=== PATIENT | male | born 1965 | race Caucasian/White ===

== ENCOUNTER 2024-07-31 15:41 | Outpatient (AMB) | payer OTHER, SELFPAY ==
--- NOTE | 2024-07-31 15:44 | MHC.PC.OV ---
Vital Signs 07/31/24 15:53 Height 5 ft 6.75 in Weight 207 lb BMI 32.7 BP 132/70 Blood Pressure Location Rt brachial Pulse 85 Pulse Source Pulse Oximeter Temp 97.2 F Pulse Oximetry (%) 97 Intake Visit Reasons: physical Intake Note: left shoulder pain Allergies No Known Allergies Allergy (Verified 08/01/24 06:15) Medication List - Last Reconciled 08/01/24 by Sabino Butler MD atorvastatin 20 mg PO DAILY dulaglutide (Trulicity) 1.5 mg (0.5 mL) subcut QWEEK 90 days meloxicam 15 mg PO DAILY metformin 1,000 mg PO BIDWMEAL HPI physical HPI Details 59-year-old male presents to the office for an annual physical. Patient has history of diabetes and is taking medications. He is compliant with medications and reporting no side effects. 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 Patient has been complaining of left shoulder pain for the past few years. No history of fall or injury prior to the onset of symptoms. Pain has worsened over the months. He now has restriction of movement when he is unable to lift the arm over the shoulder level. Consistently wearing a sling at work. [facility] Medical History (Updated 08/01/24 @ 06:21 by Sabino Butler MD) Arthritis of left shoulder DM (diabetes mellitus) type II uncontrolled with eye manifestation Physical exam (Primary Care) Vital Signs: Last Vital Signs Temp 97.2 F 07/31/24 15:53 Pulse 85 07/31/24 15:53 BP 132/70 07/31/24 15:53 Pulse Ox 97 07/31/24 15:53 BMI result Body Mass Index 32.7 Const General: cooperative and healthy appearing Nutritional Appearance: well nourished Orientation/consciousness: patient oriented x3 Limitations: no limitations HENMT Head: Yes normal to inspection Eyes General: appearance normal, both eyes and all related structures Neck Neck: Yes normal visual inspection Chest Chest palpation & inspection: normal palpation of entire chest wall Resp Effort & Inspection: normal respiratory effort Neuro General: patient oriented x3 Coding Level of Care Code New Pt Level 3 (60359) New Pt Prev Care 40-64y(91457) Diagnoses Left shoulder strain S46.912A Arthritis of left shoulder M19.012 DM (diabetes mellitus) type II uncontrolled with eye manifestation Assessment & Plan Assessment & Plan (1) Left shoulder strain: Code(s): S46.912A - Strain of unspecified muscle, fascia and tendon at shoulder and upper arm level, left arm, initial encounter Plan: X-ray of the shoulder ordered. Physical therapy to improve range of motion ordered. An orthopedic consult for possible steroid injection suggested. Meloxicam added to the regimen. (2) Arthritis of left shoulder: Code(s): M19.012 - Primary osteoarthritis, left shoulder Category: Medical Plan: As above (3) DM (diabetes mellitus) type II uncontrolled with eye manifestation: Category: Medical Plan: Medications for 90 days ordered. Continue medications at same dosage. Plan As above Orders: Orders XR shoulder LT min 2V 07/31/24 S43.402A - Unspecified sprain of left shoulder joint, initial encounter PT Evaluation and Treatment 07/31/24 S46.912A - Strain of unspecified muscle, fascia and tendon at shoulder and upper arm level, left arm, initial encounter Medications: New atorvastatin 20 mg PO DAILY 90 tabs 1RF meloxicam 15 mg PO DAILY 14 tabs 0RF metformin 1,000 mg PO BIDWMEAL 180 tabs 1RF Changed From dulaglutide (Trulicity) 1.5 mg (0.5 mL) subcut QWEEK 2 mL 3RF To dulaglutide (Trulicity) 1.5 mg (0.5 mL) subcut QWEEK 6.5 mL 3RF 90 days
[2024-07-31 15:53] VITALS: BP 132/70; PULSE 85; TEMP 36.2; O2SAT 97; BMI 32.7
--- OUTSIDE RECORDS SUMMARY | 2024-07-31 16:16 | XMS_ITS ---
Author Organization Colt Sheikh DO [facility] Address [address] [place] [id number] Care Team Providers Care Telephony Engineer Name Role Phone Colt Sheikh Primary Care Provider [phone] REASON FOR VISIT Refills MEDICATIONS Medication SIG (Take, Route, Fr equency, Duration) Notes Start Date End Date Status Trulicity 1.5 MG/0.5ML 1.5mg/0.5ml Subcu taneous Once a week for 90 days Active Encounters Encounter Location Date Provider Diagnosis Colt Sheikh DO, [address] [id number] 06/15/2024 Colt Sheikh Type 2 diabetes mellitus without complication, without long-term current use of insulin E11.9 ASSESSMENTS Encounter Date Diagnosis Assessment Notes Treatment Notes Treatment Clinical Notes 06/15/2024 Type 2 diabetes mellitus without complication, without long-term current use of insulin (ICD-10 - E11.9) PLAN OF TREATMENT Medication Medication Name Sig Start Date Stop Date Notes Trulicity 1.5 MG/0.5ML 1.5mg/0.5ml Subcu taneous Once a week for 90 days
--- OUTSIDE RECORDS SUMMARY | 2024-07-31 16:16 | XMS_ITS ---
Author Organization Colt Sheikh DO, [facility] Address [address] [place], [place] [phone] Care Team Providers Care Wet Pour Supervisor Name Role Phone Colt Sheikh Primary Care Provider REASON FOR VISIT physical Encounters Encounter Location Date Provider Diagnosis Colt Sheikh DO, FACP [address] [place] [phone] 07/31/2024 Colt Sheikh PLAN OF TREATMENT No Information
--- OUTSIDE RECORDS SUMMARY | 2024-07-31 16:16 | XMS_ITS | Patient Health Record ---
Author Organization Colt Sheikh DO, FACP Address [address] [place], [place] [phone] Care Team Providers Care Customer Complaint Clerk Name Role Phone Colt Sheikh Primary Care Provider [phone] ALLERGIES No Known Allergies REASON FOR REFERRAL No Information MEDICATIONS Medication SIG (Take, Route, Frequency, Duration) Notes Start Date End Date Status Atorvastatin Calcium 20 MG 1 tablet Orally Once a day Active metFORMIN HCl 1000 MG 1 tablet with a me al Orally Twice a day Active Trulicity 1.5 MG/0.5ML 1.5mg/0.5ml Subcu taneous Once a week for 90 days Active IMMUNIZATIONS Vaccine Route Administration Date Status Comme nts Influenza Quad Unknown 04/21/2022 Administered COVID-19 Manolo (J/J) Unknown 02/06/2021 Administered TDaP Unknown 04/21/2022 Administered SOCIAL HISTORY Tobacco Use: Social History Observation Description Date Details (start date - stop date) Never Smoker NA - NA Sex Assigned At : Social History Observation Description Sex Assigned At Unknown Tobacco Use/Smoking Question Answer Notes Patient is a nonsmoker Additional Findings: Tobacco Non-User Cu rrent non-smoker, currently using no form of tobacco Alcohol Screen Question Answer Notes Did you have a drink contain ing alcohol in the past year? Yes How often did you have a dri nk containing alcohol in the past year? Monthly or less (1 point) How many drinks did you have on a typical day when you were drinking in the past year? 1 or 2 drinks (0 point) How often did you have 6 or more drinks on one occasion in the past year? Never (0 point) Points 1 Interpretation Negative PROBLEMS Problem Type ICD Code Onset Dates Problem Status W/U Status Risk SNOMED Code Notes Problem Type 2 diabetes mellitus without complication, without long-term current use of insulin (E11.9) Active confirmed [id number] VITAL SIGNS Height 68 in 04/27/2024 Weight 201 lbs 04/27/2024 BMI 30.56 kg/m2 04/27/2024 Encounters Encounter Location Date Provider Diagnosis Colt Sheikh DO, [facility] [address] [place], [place] [phone] 07/31/2024 Colt Sheikh DO, [facility] [address] [place], [place] [phone] 06/15/2024 Colt Sheikh Type 2 diabetes mellitus without complication, without long-term current use of insulin E11.9 Colt Sheikh DO, [facility] [address] [place], [place] [phone] 04/27/2024 Colt Sheikh Type 2 diabetes mellitus without complication, without long-term current use of insulin E11.9 and Prostate cancer screening Z12.5 ASSESSMENTS Encounter Date Diagnosis Assessment Notes Treatment Notes Treatment Clinical Notes 06/15/2024 Type 2 diabetes mellitus without complication, without long-term current use of insulin (ICD-10 - E11.9) 04/27/2024 Type 2 diabetes mellitus without complication, without long-term current use of insulin (ICD-10 - E11.9) 04/27/2024 Prostate cancer screening (ICD-10 - Z12.5) PLAN OF TREATMENT Pending Test Test Name Order Date CBC w DIFF 04/27/2024 TSH (THYROID STIMULATING HORMONE) 2023 VITAMIN D 25-OH TOTAL 04/27/2024 Urinalysis and Microscopic 04/27/2024 Liver Panel 04/27/2024 Basic Metabolic Panel Fasting 04/27/2024 Lipid Panel 04/27/2024 PSA,Total (Free>4and<10) 04/27/2024 Microalbumin, Random 04/27/2024 Hemoglobin A1c 04/27/2024 Insurance Providers Payer Name Payer Address Payer Phone Subscriber Number Group Number Insured Name Patient Relationship to Insured Coverage Start Date Coverage End Date [employer] [address] [place] [id number] Isaak Mcknight Self - patient is the insured MEDICAL (GENERAL) HISTORY Medical History History ICD Code type II diabetes mellitus hypertension, diet controlled seasonal allergies Surgical History Surgery Date(Month/Year) cataract-lens implants OS
--- OUTSIDE RECORDS SUMMARY | 2024-07-31 16:16 | XMS_ITS ---
Author Organization Colt Sheikh DO, FACP Address [address] [place], [place] [phone] Care Team Providers Care Manufacturer'S Representative Name Role Phone Colt Sheikh Primary Care Provider ALLERGIES No Known Allergies REASON FOR VISIT new patient MEDICATIONS Medication SIG (Take, Route, Frequency, Duration) Notes Start Date End Date Status Atorvastatin Calcium 20 MG 1 tablet Orally Once a day Active Trulicity 1.5 MG/0.5ML 1.5mg/0.5ml Subcu taneous Once a week for 30 days Active metFORMIN HCl 1000 MG 1 tablet with a me al Orally Twice a day Active SOCIAL HISTORY Tobacco Use: Social History Observation [...] current use of insulin (E11.9) Active confirmed [id number] VITAL SIGNS BMI 30.56 kg/m2 04/27/2024 Height 68 in 04/27/2024 Weight 201 lbs 04/27/2024 Encounters Encounter Location Date Provider Diagnosis Colt Sheikh DO, FACP [address] [place] [phone] 04/27/2024 Colt Sheikh Type 2 diabetes mellitus without complication, without long-term current use of insulin E11.9 and Prostate cancer screening Z12.5 ASSESSMENTS Encounter Date Diagnosis Assessment Notes Treatment Notes Treatment Clinical Notes 04/27/2024 Type 2 diabetes mellitus without complication, without long-term current use of insulin (ICD-10 - E11.9) 04/27/2024 Prostate cancer screening (ICD-10 - Z12.5) PLAN OF TREATMENT Medication Medication Name Sig Start Date Stop Date Notes Atorvastatin Calcium 20 MG 1 tablet Orally Once a day Trulicity 1.5 MG/0.5ML 1.5mg/0.5ml Subcu taneous Once a week for 30 days metFORMIN HCl 1000 MG 1 tablet with a me al Orally Twice a day Pending Test Test Name Order Date CBC w DIFF 04/27/2024 TSH (THYROID STIMULATING HORMONE) 2023 VITAMIN D 25-OH TOTAL 04/27/2024 Urinalysis and Microscopic 04/27/2024 Liver Panel 04/27/2024 Basic Metabolic Panel Fasting 04/27/2024 Lipid Panel 04/27/2024 PSA,Total (Free>4and<10) 04/27/2024 Microalbumin, Random 04/27/2024 Hemoglobin A1c 04/27/2024 Next Appt Details Follow Up: 3 Months, Reason: H&P Progress Notes * Examination Category Sub-Category Detail Notes General Examination PSYCH: alert, orien yolanda, cognitive function intact History and Physical Notes * HPI (History of Present Illness) Category Sub-Category Detail Notes New symptom(s) Telehealth Location of provider:: Pro cruz's home address Location of patient:: Address listed in demographics for today's visit Patient identification confirmed using:: Name, Telehealth method:: Telephone only. Nieves ent not visible to care provider. Consent:: Patient verbally c onsented to treatment, Patient verbally consented to billing insurance company, Patient informed of any privacy concerns related to method of visit Total time spent with patient (mins): 33 Disclaimer: This Telehealth visit is being conducted per CDC recommendations due to the COVID-19 outbreak.
== END 2024-07-31 16:07 | disposition home or self-care (01) ==
LOC: HO.HMCSH 15:41
PROVIDERS: PCP Internal Medicine; Visit Provider Internal Medicine
DX: Z00.00 Encounter for general adult medical examination without abnormal findings (principal); S46.912A Strain of unspecified muscle, fascia and tendon at shoulder and upper arm level, left arm, initial encounter; M19.012 Primary osteoarthritis, left shoulder

== ENCOUNTER → 2024-07-31 15:41 | Outpatient (BNVA) | payer OTHER, SELFPAY | PROVIDERS: PCP Internal Medicine; Visit Provider Internal Medicine ==

== ENCOUNTER 2024-08-27 13:26 | Outpatient (REF) | payer OTHER, SELFPAY ==
--- NOTE | ~2024-08-27 | XR_ITS ---
EXAMINATION: XR SHOULDER, LEFT CLINICAL INFORMATION: S43.402A - Unspecified sprain of left shoulder joint, initial encounter COMPARISON: None available. TECHNIQUE: AP external rotation, Grashey, scapular Y, and axillary views of the left shoulder. FINDINGS: Normal bone mineralization. No fracture, dislocation, or suspicious bone lesion. Normal alignment. The glenohumeral joint is normal. The AC joint demonstrates mild superior surface spurring. No undersurface spurs. There is a type II acromion. No undersurface spurring. The subacromial space is preserved. Remainder of the soft tissue and bony structures appear normal. XR/XR shoulder LT min 2V IMPRESSION: 1. Mild degenerative arthritis of the AC joint. Otherwise normal exam. Electronically signed by: Piyush Monsalve MD 08/28/2024 09:44 AM EDT
== END 2024-08-27 13:27 | disposition home or self-care (01) ==
LOC: HO.XRAY 13:26
PROVIDERS: PCP Internal Medicine; Visit Provider Internal Medicine
DX: E11.9 Type 2 diabetes mellitus without complications (principal); G47.00 Insomnia, unspecified; I10 Essential (primary) hypertension; E78.00 Pure hypercholesterolemia, unspecified; M75.02 Adhesive capsulitis of left shoulder
CPT/HCPCS: 73030

== ENCOUNTER → 2024-08-27 13:31 | Outpatient (BNV) | payer OTHER, SELFPAY | PROVIDERS: PCP Internal Medicine; Visit Provider Radiology Diagnostic Radiology | DX: S43.402A Unspecified sprain of left shoulder joint, initial encounter (principal) | CPT/HCPCS: 73030 ==

== ENCOUNTER 2024-08-27 15:34 | Outpatient (AMB) | payer OTHER, SELFPAY ==
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
[2024-08-27 15:45] VITALS: BP 132/72; PULSE 91; TEMP 36.7; O2SAT 98; BMI 33.0
== END 2024-08-27 16:30 | disposition home or self-care (01) ==
LOC: HO.HMCSH 15:34
PROVIDERS: PCP Internal Medicine; Visit Provider Physician Assistant Medical
DX: E11.9 Type 2 diabetes mellitus without complications (principal); G47.00 Insomnia, unspecified; I10 Essential (primary) hypertension; E78.00 Pure hypercholesterolemia, unspecified; M75.02 Adhesive capsulitis of left shoulder

== ENCOUNTER 2024-10-10 13:42 | Outpatient (AMB) | payer OTHER, SELFPAY ==
--- NOTE | 2024-10-10 13:48 | MHC.OFFVIS ---
Vital Signs 10/10/24 14:01 Height 5 ft 6.75 in Weight 209 lb BMI 33.0 Intake Visit Reasons: Left shoulder pain and weakness Intake Note: Isaak is a 59 year old 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 male who presents with complaints of progressively worsening left shoulder pain and weakness. The patient describes his pain as sharp in nature. The patient's symptoms have gotten worse over the last 1-2 years in spite of continued non operative treatments. The patient has completed 6 weeks of formal physical therapy. The therapy aggravated his pain. He has tried Tylenol, Aleve and Advil which gave him minimal relief. The patient reports difficulty lifting his left hand above shoulder height. Allergies No Known Allergies Allergy (Verified 10/10/24 13:51) Medication List - Last Reconciled 10/10/24 by David Chang MD atorvastatin 20 mg PO DAILY cyclobenzaprine 10 mg PO TID PRN dulaglutide (Trulicity) 1.5 mg (0.5 mL) subcut QWEEK 90 days meloxicam 15 mg PO DAILY metformin 1,000 mg PO BIDWMEAL [facility] Medical History (Updated 10/10/24 @ 14:17 by David Chang MD) Adhesive capsulitis of left shoulder Mild hypercholesterolemia Insomnia Seasonal allergies Hypertension Type 2 diabetes mellitus with hemoglobin A1c goal of less than 7.0% Arthritis of left shoulder DM (diabetes mellitus) type II uncontrolled with eye manifestation Social History (Updated 10/10/24 @ 13:51 by Fatou Vasquez Kassie) Patient Tobacco Use Status: Never used Tobacco Current occupational status: employed 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, 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 Physical Exam Const Other: Well-nourished well-developed very friendly male awake alert and oriented x3 in no acute distress Extrem Other: Bilateral upper extremity examination shows good capillary refill, no skin lesions noted, normal sensation light touch Left shoulder examination shows decreased range of motion when compared to his right shoulder, 4+ out of 5 strength with supraspinatus testing, positive impingement signs, tenderness over his acromioclavicular joint, no instability Results Reviewed Results Reviewed: X-rays of the patient's left shoulder show severe acromioclavicular joint narrowing, a type 2 acromion, no acute bony abnormalities Assessment & Plan Assessment & Plan (1) Rotator cuff insufficiency of left shoulder: Code(s): M25.312 - Other instability, left shoulder Category: Medical Plan Mr. Mcknight presents with left shoulder pain and weakness due to impingement syndrome and possible rotator cuff tearing. Thus, I will send the patient for an MRI of his left shoulder for further evaluation. I will see him back once the MRI is completed to discuss the findings and treatment options. Feel free to call me at any time should questions regarding his orthopedic management arise. Thank you very much for asking me to see this very friendly gentleman. I spent 22 minutes in reviewing the patient's records and imaging studies, seeing the patient and documenting in the medical record. Orders: Orders MR shoulder LT wo con Today M25.312 - Other instability, left shoulder Coding Level of Care Code New Pt Level 3 (33175) Complex EM visit Add On G2211 Diagnoses Rotator cuff insufficiency of left shoulder M25.312
[2024-10-10 14:01] VITALS: BMI 33.0
== END 2024-10-10 14:14 | disposition home or self-care (01) ==
LOC: HO.HOS 13:42
PROVIDERS: PCP Internal Medicine; Visit Provider Orthopaedic Surgery
DX: M25.312 Other instability, left shoulder (principal); M75.42 Impingement syndrome of left shoulder
CPT/HCPCS: 99203

== ENCOUNTER → 2024-10-22 18:44 | Outpatient (BNV) | payer OTHER, SELFPAY | PROVIDERS: PCP Internal Medicine; Visit Provider Radiology Diagnostic Radiology | DX: M75.122 Complete rotator cuff tear or rupture of left shoulder, not specified as traumatic (principal) | CPT/HCPCS: 73221 ==

== ENCOUNTER 2024-10-22 18:53 | Outpatient (REF) | payer OTHER, SELFPAY ==
--- NOTE | ~2024-10-22 | MR_ITS ---
EXAMINATION: MRI LEFT SHOULDER WITHOUT CONTRAST HISTORY: M25.312 - Other instability, left shoulder COMPARISON: Correlation is made with plain films of the left shoulder dated 08/27/2024. TECHNIQUE: Coronal T1, T2, and fat suppressed T2, axial fat suppressed proton density, and sagittal T2 weighted MR images of the left shoulder were obtained. FINDINGS: Bone Marrow: Bone marrow signal intensity is normal. Joint effusion: There is no glenohumeral joint effusion. Glenohumeral joint: The glenohumeral joint is maintained. AC joint: There is mild degenerative change of the AC joint with osteophyte formation. Supraspinatus muscle/tendon: There is an obliquely oriented linear focus of fluid signal intensity extending through the distal supraspinatus tendon, consistent with a full-thickness tear. A small amount of fluid is seen in the subdeltoid/subacromial bursa. There is no tendon retraction. Normal muscle bulk. Infraspinatus muscle/tendon: The infraspinatus tendon is intact. Normal muscle bulk. Teres minor muscle/tendon: The teres minor tendon is intact. Normal muscle bulk. Subscapularis muscle/tendon: The subscapularis tendon is intact. Normal muscle bulk. Biceps tendon: The biceps tendon is intact and normally located. Glenoid labrum: The glenoid labrum is grossly unremarkable in appearance, although evaluation is limited by lack of a joint effusion. Other findings: None MR/MR shoulder LT wo con IMPRESSION: Full-thickness tear of the distal supraspinatus tendon as described. Electronically signed by: Colt Agarwal MD 10/23/2024 07:42 AM EDT
== END 2024-10-22 18:54 | disposition home or self-care (01) ==
LOC: HO.MRI 18:53
PROVIDERS: PCP Internal Medicine; Visit Provider Physician Assistant Medical
DX: M25.312 Other instability, left shoulder (principal)
CPT/HCPCS: 73221

== ENCOUNTER 2024-11-08 07:54 | Outpatient (AMB) | payer OTHER, SELFPAY ==
[2024-11-08 08:01] VITALS: BMI 33.0
--- NOTE | 2024-11-08 08:01 | MHC.OFFVIS ---
Vital Signs 11/08/24 08:01 Height 5 ft 6.75 in Weight 209 lb BMI 33.0 Intake Visit Reasons: OV- Left shoulder MRI review Intake Note: Isaak is a 59 year old 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 male who presents with complaints of progressively worsening left shoulder pain and stiffness. The patient describes his pain as sharp in nature. The patient's symptoms have gotten worse over the last 1-2 years in spite of continued non operative treatments. The patient has completed 6 weeks of formal physical therapy. The therapy aggravated his pain. He has tried Tylenol, Aleve and Advil which gave him minimal relief. The patient reports difficulty lifting his left hand above shoulder heigh Allergies No Known Allergies Allergy (Verified 11/08/24 08:02) Medication List - Last Reconciled 11/08/24 by David Chang MD atorvastatin 20 mg PO DAILY cyclobenzaprine 10 mg PO TID PRN dulaglutide (Trulicity) 1.5 mg (0.5 mL) subcut QWEEK 90 days meloxicam 15 mg PO DAILY metformin 1,000 mg PO BIDWMDAL [facility] Medical History Adhesive capsulitis of left shoulder Mild hypercholesterolemia Insomnia Seasonal allergies Hypertension Type 2 diabetes mellitus with hemoglobin A1c goal of less than 7.0% Arthritis of left shoulder DM (diabetes mellitus) type II uncontrolled with eye manifestation Social History Patient Tobacco Use Status: Never used Tobacco Current occupational status: employed Current occupation: [employer], 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 Physical Exam Vital Signs: BMI result Body Mass Index 33.0 Const Other: Well-nourished well-developed very friendly male awake alert and oriented x3 in no acute distress Extrem Other: Left shoulder examination shows decreased range of motion when compared to his right shoulder, 4+ out of 5 strength with supraspinatus testing, positive impingement signs, tenderness over his acromioclavicular joint, no instability Results Reviewed Results Reviewed: MRI of the patient's left shoulder show severe acromioclavicular joint narrowing, a type 2 acromion, signal change within the supraspinatus tendon due to adhesive capsulitis versus a small rotator cuff tear Assessment & Plan Assessment & Plan (1) Impingement syndrome of left shoulder: Code(s): Tiffanie75.42 - Impingement syndrome of left shoulder Category: Medical Plan Mr. Mcknight presents with left shoulder pain due to impingement syndrome, acromioclavicular joint arthritis and adhesive capsulitis versus a small rotator cuff tear. I had a lengthy discussion with the patient regarding the treatment options. At this point he appears to be failing continued non operative treatments. He is considering undergoing left shoulder surgery later this year or early next year. He will contact my office to pick a surgery date when he chooses to do so. Surgery will most likely involve left shoulder arthroscopic distal clavicle excision, left shoulder arthroscopic acromioplasty and possible mini open rotator cuff repair should a full-thickness tear be found at the time of his surgery. He will continue with his range of motion exercises in the meantime. Feel free to call me at any time should questions regarding his orthopedic management arise. I spent 20 minutes in reviewing the patient's records and imaging studies, seeing the patient and documenting in the medical record. Coding Level of Care Code Est Pt Level 3 (17496) Complex EM visit Add On G2211 Diagnoses Impingement syndrome of left shoulder M75.42
== END 2024-11-08 08:28 | disposition home or self-care (01) ==
LOC: HO.HOS 07:55
PROVIDERS: PCP Internal Medicine; Visit Provider Orthopaedic Surgery
DX: M75.42 Impingement syndrome of left shoulder (principal)
CPT/HCPCS: 99213

== ENCOUNTER → 2024-11-08 07:54 | Outpatient (BNVA) | payer OTHER, SELFPAY | PROVIDERS: PCP Internal Medicine; Visit Provider Orthopaedic Surgery ==

== ENCOUNTER 2024-11-21 16:15 | Outpatient (AMB) | payer OTHER, SELFPAY ==
[2024-11-21 16:20] VITALS: BP 133/87; PULSE 86; RESP 16; TEMP 36.8; O2SAT 97; BMI 32.8
--- NOTE | 2024-11-21 16:20 | A.OFFPC_ITS ---
Vital Signs 11/21/24 16:20 Height 5 ft 6.75 in Weight 208 lb BMI 32.8 BP 133/87 Blood Pressure Location Lt brachial Position Sitting Respiration 16 Pulse 86 Pulse Source Pulse Oximeter Temp 98.2 F Temp Source Temporal Artery Scan Pulse Oximetry (%) 97 Oxygen Delivery Method Room Air Intake Visit Reasons: follow up Ict Programmer Required: No Accompanied by: Self / Same As Patient Allergies No Known Allergies Allergy (Verified 11/21/24 16:45) Medication List - Last Reconciled 11/21/24 by Do Harris PA-C atorvastatin 20 mg PO DAILY cyclobenzaprine 10 mg PO TID PRN dulaglutide (Trulicity) 1.5 mg (0.5 mL) subcut QWEEK 90 days meloxicam 15 mg PO DAILY metformin 1,000 mg PO BIDWMEAL Tobacco use date assessed: 11/21/24 Dental Screening Dental Screen Date: 11/21/24 Did you have a dental visit in the last 12 months?: Yes Did you have a dental problem in the last 6 months where you did not have access to dental care?: No Was dental information given to patient?: Patient has dentist HPI follow up HPI Details The patient is a 59-year-old male presenting with left shoulder pain and questions regarding a previously conducted MRI of the left shoulder. The shoulder pain has been attributed to impingement syndrome, AC joint arthritis, and adhesive capsulitis, with a possible small rotator cuff tear noted in MRI findings. However, the orthopedic consultation later indicated that a tear was not evident, and conservative measures were recommended unless arthroscopic surgery with potential rotator cuff repair is deemed necessary in the future. 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 Despite chronic conditions, recent physical therapy and [id number] exercises have improved pain levels and mobility. Additionally, the patient is actively managing diabetes with metformin and Trulicity, with a noted A1c of 6.4, and hyperlipidemia with atorvastatin. Concerns regarding erectile dysfunction were discussed, with potential links to diabetes and medication side effects considered. 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 - The patient is engaged in physical the rapy to enhance shoulder mobility and reduce pain. - Concerns about medication costs due to changes in insurance and network coverage. - Expresses interest in alternative ther apies for medical conditions, such as PRP for the shoulder. [facility] Medical History (Updated 11/21/24 @ 17:09 by Do Harris PA-C) Hyperlipidemia LDL goal <100 Erectile dysfunction Fatigue Adhesive capsulitis of left shoulder Mild hypercholesterolemia Insomnia Seasonal allergies Hypertension Type 2 diabetes mellitus with hemoglobin A1c goal of less than 7.0% Arthritis of left shoulder DM (diabetes mellitus) type II uncontrolled with eye manifestation Family History Mother Diabetes History of cancer Father Heart attack Social History Housing: House Alcohol intake: current Alcohol intake frequency: holidays/special occasions only Patient Tobacco Use Status: Never used Tobacco service: No Current occupational status: employed Cognitive needs: No Hearing needs: No Vision needs: No Questionnaire PHQ-9 Over the last 2 weeks, how often have you been bothered by any of the following problems? 1. Little interest or pleasure in doing things: not at all 2. Feeling down, depressed, or hopeless: not at all 3. Trouble falling or staying asleep, or sleeping too much: not at all 4. Feeling tired or having little energy: not at all 5. Poor appetite or overeating: not at all 6. Feeling bad about yourself - or that you are a failure or have let yourself or your family down: not at all 7. Trouble concentrating on things, such as reading the newspaper or watching television: not at all 8. Moving or speaking so slowly that other people could have noticed. Or the opposite - being so fidgety or restless that you have been moving around a lot more than usual: not at all 9. Thoughts that you would be better off or of hurting yourself in some way: not at all Total score: 0 Depression Screening Interpretation: Negative Depression Screening Done: Yes 41381 - PHQ-9 Billing: Yes Source: Developed by Drs. Colt Ricci, Haven Murillo, Renny Chappell and colleagues, with an educational gabriela from [employer]. Thrive Questionnaire Date Thrive assessed: 11/21/24 I am a: Patient What is your living situation today?: I have a steady place to live Within the past 12 months, did the food you bought not last and you didn't have the money to get more?: Never true Within the past 12 months, did you worry whether your food would run out before you got money to buy more?: Never true Do you have trouble paying for medicines?: No Do you have trouble getting transportation to medical appointments?: No Do you have trouble paying your heating and electricity bill?: No Do you have trouble taking care of your child, family member or friend?: No Do you have trouble with day-to-day activities such as bathing, preparing meals, shopping, managing finances, etc.?: No Are you currently unemployed and looking for a job?: No Are you interested in more education?: No Please select the resources that you would like help with: None THRIVE Score: 0 AUDIT C Alcohol Use Questionnaire (AUDIT-C) 1. How often do you have a drink containing alcohol?: Monthly or less 2. How many drinks containing alcohol do you have on a typical day when you are drinking?: 1 or 2 3. How often do you have six or more drinks on one occasion?: Never Total Score: 1 Score Reviewed/Action Taken: No EDGARDO-7 AMB Questionnaire EDGARDO-7 Date EDGARDO - 7 assessed: 11/21/24 Feeling nervous, anxious, or on edge: 0 = Not at all Not being able to stop or control worryin = Not at all Worrying too much about different things: 0 = Not at all Trouble relaxin = Not at all Being so restless that it is hard to sit still: 0 = Not at all Becoming easily annoyed or irritable: 0 = Not at all Feeling afraid as if something awful might happen: 0 = Not at all Total EDGARDO-7 score (0-4 normal; 5-9 mild; 10-14 moderate; 15-21 severe): 0 Source: Developed by Drs. Colt Ricci, Haven Murillo, Renny Chappell and colleagues, with an educational gabriela from [employer]. EDGARDO-7 Assessment Billing DEGARDO-7 Assessment Tool: EDGARDO-7 Assessment 71409 Review of Systems Const Details: - Musculoskeletal: Reports left shoulder pain. - Musculoskeletal: Reports improvements in shoulder mobility with physical therapy. - Cardiovascular: Denies syncope, chest pain, or palpitations. - Neurological: Reports erectile dysfunction. - Endocrinological: Reports diabetes management. - Endocrinological: Reports interest in potential testosterone issues. - General: Reports improvement with current pain regimen. Physical exam (Primary Care) Vital Signs: Last Vital Signs Temp 98.2 F 11/21/24 16:20 Pulse 86 11/21/24 16:20 Resp 16 11/21/24 16:20 BP 133/87 11/21/24 16:20 Pulse Ox 97 11/21/24 16:20 Oxygen Delivery Method Room Air 11/21/24 16:20 Care Plan Goal for BP management: <140/90 at Goal BMI result Body Mass Index 32.8 Tobacco/Smoking Status: Tobacco use Status Tobacco use date assessed 11/21/24 11/21/24 16:30 Patient Tobacco Use Status Never used Tobacco 11/21/24 16:30 PHQ-9: PHQ-9 Score PHQ-9: Total score 0 11/21/24 16:47 Depression Screening Interpretation: Negative Thrive Assessment: Date of Thrive Assessment Date Thrive assessed 11/21/24 11/21/24 16:30 Const Other: Appearance: Alert. Oriented X3. No acute distress. Head: Normal external exam. Normocephalic. Atraumatic. Eyes: Pupils are equal, round, and reactive to light. Extraocular movements intact. Conjunctiva and sclera normal. Eyelids normal. Throat: Pharynx normal. Uvula midline. Moist mucous membranes. Neck: Normal inspection. Neck supple. Full range of motion. Cardiovascular: Normal heart rate and rhythm. Heart sound normal. No murmurs noted. Pulses normal throughout. Respiratory: No respiratory distress. Painless inspiration. Breath sounds normal. No wheezes/rales/rhonchi noted. Chest nontender. No accessory muscle usage noted or decreased air movement noted. Back: Full range of motion noted. Skin: Skin warm and dry. Normal skin color. Normal skin turgor. No rashes/lesio ns/lacerations noted. Extremities: With chronic pain to left shoulder with limited range of motion due to pain. Otherwise all other extremities exhibit normal range of motion nontender. Neuro: Oriented X 3. No motor deficit. No sensory deficit. Reflexes normal. Results AMB Hemoglobin A1c AMB Hemoglobin A1c 6.4 % Last Edit by MALIHA Hou on 11/21/24 17:08 Results Reviewed Results Reviewed: - Labs: A1c level recorded at 6.4. - Diagnostic Imaging: Shoulder MRI previously obtained, indicating a possible small rotator cuff tear. Coding Level of Care Code Est Pt Level 4 (80214) Complex EM visit Add On G2211 Diagnoses Impingement syndrome of left shoulder M75.42 Type 2 diabetes mellitus with hemoglobin A1c goal of less than 7.0% E11.9 Hypertension I10 Rotator cuff insufficiency of left shoulder M25.312 Hyperlipidemia LDL goal <100 E78.5 Erectile dysfunction N52.9 Additional Codes PHQ-9 - 42303 - PHQ-9 Billing: Yes ([id number]) EDGARDO-7 Assessment Billing - EDGARDO-7 Assessment Tool: EDGARDO-7 Assessment 40999 ([id number]) Assessment & Plan Assessment & Plan (1) Impingement syndrome of left shoulder: Code(s): M75.42 - Impingement syndrome of left shoulder Category: Medical Plan: Orthopedic assessment negated the presence of a tear, suggesting conservative management with physical therapy and meloxicam. Consideration for shaving down a bone spur remains if symptoms persist. Condition is chronic and stable continue to monitor. (2) Type 2 diabetes mellitus with hemoglobin A1c goal of less than 7.0%: Code(s): E11.9 - Type 2 diabetes mellitus without complications Category: Medical Plan: With a current A1c of 6.4, continue existing management with metformin and Trulicity. Plan further evaluation of testosterone levels and encourage lifestyle modifications to maintain control. Condition is chronic and stable continue to monitor. (3) Hypertension: Code(s): I10 - Essential (primary) hypertension Category: Medical Plan: The patient's blood pressure requires monitoring, and lifestyle modifications are suggested for better control. Condition is chronic and stable continue to monitor. (4) Rotator cuff insufficiency of left shoulder: Code(s): M25.312 - Other instability, left shoulder Category: Medical Plan: Continued use of physical therapy and meloxicam for relief. Surgical intervention remains optional based on future progress. Condition is chronic and stable continue to monitor. (5) Hyperlipidemia LDL goal <100: Code(s): E78.5 - Hyperlipidemia, unspecified Category: Medical Plan: Atorvastatin is part of the current regimen to manage cholesterol effectively. Reevaluate in subsequent follow-up visits. Condition is chronic and stable continue to monitor. (6) Erectile dysfunction: Code(s): N52.9 - Male erectile dysfunction, unspecified Category: Medical Plan: Engage in evaluating testosterone levels to discern contributing factors such as medications. A trial of Cialis was discussed for symptomatic relief. Condition is chronic and stable will continue to monitor. Plan Plan Patient was informed and verbally consented to the use of an ambient scribe for clinic note documentation during this visit. 1. Left Shoulder Rotator Cuff Tear Orthopedic assessment negated the presence of a tear, suggesting conservative management with physical therapy and meloxicam. Consideration for shaving down a bone spur remains if symptoms persist. 2. Diabetes Mellitus With a current A1c of 6.4, continue existing management with metformin and Trulicity. Plan further evaluation of testosterone levels and encourage lifestyle modifications to maintain control. 3. Hypertension The patient's blood pressure requires monitoring, and lifestyle modifications are suggested for better control. 4. Impingement Syndrome And Ac Joint Arthritis Continued use of physical therapy and meloxicam for relief. Surgical intervention remains optional based on future progress. 5. Hyperlipidemia Atorvastatin is part of the current regimen to manage cholesterol effectively. Reevaluate in subsequent follow-up visits. 6. Erectile Dysfunction Engage in evaluating testosterone levels to discern contributing factors such as medications. A trial of Cialis was discussed for symptomatic relief. We discussed the patient's left shoulder pain in detail, focusing on the contrast between MRI findings and orthopedic consultation that minimized the likelihood of a rotator cuff tear. I addressed management options, highlighting physical therapy's benefits and surgery being reserved as a last resort due to potential recovery impacts on his business. For diabetes and hypertension, ongoing management strategies were reviewed, emphasizing the importance of adhering to current therapies. Regarding erectile dysfunction, I explored the potential influence of diabetes and advised checking testosterone levels. I suggested a trial of Cialis for relief from erectile dysfunction, emphasizing monitoring for effectiveness. Follow-up for three months was agreed upon to track progress and revisit therapy decisions. Orders: Orders Dihydrotestosterone Today N52.9 - Male erectile dysfunction, unspecified, R53.83 - Other fatigue DHEA Sulfate Today N52.9 - Male erectile dysfunction, unspecified, R53.83 - Other fatigue Testosterone, Free/Total Today N52.9 - Male erectile dysfunction, unspecified, R53.83 - Other fatigue Testosterone, Total Today N52.9 - Male erectile dysfunction, unspecified, R53.83 - Other fatigue AMB Hemoglobin A1c Today E11.9 - Type 2 diabetes mellitus without complications Medications: New tadalafil (Cialis) administer approximately 30min before sexual activity; do not use more than 1 dose per 24hrs 10 mg PO DAILY PRN 90 tabs 1RF sexual activity N52.9 - Male erectile dysfunction, unspecified, R53.83 - Other fatigue Patient Instructions: - Continue with physical therapy as recommended. - Take meloxicam as prescribed for shoulder pain. - Monitor blood sugar and maintain dietary control for diabetes management. - Follow prescribed medication regimen for hypertension and cholesterol. - Begin Cialis per dosing plan discussed if experiencing erectile dysfunction. - Return for follow-up in three months or sooner if symptoms worsen. - Provide health insurance details to avoid billing issues for necessary tests. - Ensure consistent monitoring of blood pressure at home.
== END 2024-11-21 17:03 | disposition home or self-care (01) ==
LOC: HO.HMCSH 16:15
PROVIDERS: PCP Internal Medicine; Visit Provider Physician Assistant Medical
DX: M75.42 Impingement syndrome of left shoulder (principal); E11.9 Type 2 diabetes mellitus without complications; I10 Essential (primary) hypertension; M25.312 Other instability, left shoulder; E78.5 Hyperlipidemia, unspecified; N52.9 Male erectile dysfunction, unspecified

== ENCOUNTER → 2024-11-21 16:15 | Outpatient (BNVA) | payer OTHER, SELFPAY | PROVIDERS: PCP Internal Medicine; Visit Provider Physician Assistant Medical | DX: M75.42 Impingement syndrome of left shoulder (principal); E11.9 Type 2 diabetes mellitus without complications; I10 Essential (primary) hypertension; M25.312 Other instability, left shoulder; E78.5 Hyperlipidemia, unspecified; N52.9 Male erectile dysfunction, unspecified; R53.83 Other fatigue | CPT/HCPCS: 83036; 96127 ==

== ENCOUNTER 2024-11-27 17:00 | Outpatient (RCR) | payer OTHER, SELFPAY ==
--- NOTE | 2024-09-10 14:31 | MHC.PT.EP ---
[facility] [place] Office [place] Office [place] Office [address] [phone] F: [phone] F: [phone] F: [phone] F: [phone] Physical Therapy Plan of Care Date of Evaluation: 09/10/24 Date of Surgery: Diagnosis: strain of unspecified muscle, fascia, and tendon at shoulder and upper arm level, left arm L shoulder strain Assessment: 59 y/o R-hand dominant male referred to PT with L shoulder strain. 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 Examination shows decreased shoulder A/PROM, decreased glenohumeral accessory mobility, decreased L shoulder strength, pain, and impaired scapulothoracic mechanics. Recommend PT 2x/week for 6 weeks to address impairments, implement HEP, and optimize functional mobility. Frequency and Duration: The patient will be seen 2x/week for 6 weeks Short Term Goals: 3 weeks I with HEP Pt will demonstrate >100* flexion to faciliate overhead moblity Complaint Coordinator Goals: 6 weeks I with HEP and self management of sx Improve SPADI to 50/130 Treatment Plan: Modalities to reduce pain, spasms and effusion. Manual therapy to restore motion and function. Therapeutic exercise to improve strength and flexibility. Neuromuscular re-education for posture and balance. Therapeutic activities to return to functional activities of daily living. Electronically signed by: Janene Barron PT Please sign and return to therapist. Thank you for your referral.
--- NOTE | 2024-12-17 07:52 | MHC.PT.DC ---
[facility] [place] Office [place] Office [place] Office [address] Kylie Peters [address] [facility] [phone] F: [phone] F: [phone] F: [phone] F: [phone] Physical Therapy Discharge Report Diagnosis: strain of unspecified muscle, fascia, and tendon at shoulder and upper arm level, left arm L shoulder strain Date of Surgery: Date of Evaluation: 09/10/24 Date of Discharge: 12/17/24 Treatments to Date: 17 Cancellations to Date: 0 No Shows to Date: 0 Discharge Status: Improved Function Independent with HEP Discharge Summary: Pt has made improvements with shoulder ROM (however still limited), strength, and decreased pain levels. He is very motivated and has bought equipment to continue HEP at home. D/c at this time Electronically signed by: Janene Barron PT Please sign and return to therapist. Thank you for your referral.
== END 2024-12-17 07:52 | disposition home or self-care (01) ==
LOC: HO.PT 17:00
PROVIDERS: PCP Internal Medicine; Visit Provider Internal Medicine
DX: S46.912D Strain of unspecified muscle, fascia and tendon at shoulder and upper arm level, left arm, subsequent encounter (principal)
CPT/HCPCS: 97110; 97140; 97161; 97530

== ENCOUNTER 2025-03-18 12:31 | Outpatient (AMB) | payer OTHER, SELFPAY ==
--- NOTE | 2025-03-18 12:49 | AM.OFFWIN_ITS ---
Intake Vital Signs 03/18/25 12:50 Height 5 ft 6.75 in Weight 204 lb BMI 32.2 BP 124/80 Blood Pressure Location Lt brachial Position Sitting Pulse 111 H Pulse Source Pulse Oximeter Temp 98.3 F Temp Source Oral Pulse Oximetry (%) 98 Oxygen Delivery Method Room Air Intake Visit Reasons: EP-rt arm stung by a bee Intake Note: pt presents with right arm/hand swelling, right calf and left ankle pain and swelling after multiple bee stings yesterdat Patient Tobacco Use Status: Never used Tobacco Allergies No Known Allergies Allergy (Verified 03/18/25 12:51) Do you need a note to return to daycare/school/sports/work: No HPI HPI Comments History of Present Illness Details History of Present Illness - The patient is a 59-year-old male pres enting with swelling of the right hand and arm following an insect bite. - The patient reports being bitten by a yellow jacket around the hand area yesterday, with swelling progressing since this morning. - The swelling has caused tightness of t he skin, and the patient has not experienced a similar reaction since childhood. - He had no acute SOB, swelling to the l ips or face, or throat swelling. - He denies numbness, tingling, discharg e, CP, or SOB. - He has not taken anything for his symp toms. Physical Exam General: Cooperative, healthy appearing, comfortable, no acute distress and well developed Orientation: Patient oriented x3 Respiratory: Normal respiratory effort and able to speak in complete sentences. Clear to auscultation bilaterally Cardiovascular: Regular rate and rhythm. Normal S1 and S2. No m/r/g noted. Pulses are 1+ UE. Skin: Swelling noted on hand and arm on the right. Mild erythema noted. No streaking noted. No induration noted. No fluctuance noted. Neuro: Sensation is intact. Extremities: Swelling noted to the right hand and forearm. FROM of the right wrist and digits. 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 Patient was informed and verbally consented to the use of an ambient scribe for clinic note documentation during this visit. [facility] Medical History (Updated 11/21/24 @ 17:09 by Do Harris PA-C) Hyperlipidemia LDL goal <100 Erectile dysfunction Fatigue Adhesive capsulitis of left shoulder Mild hypercholesterolemia Insomnia Seasonal allergies Hypertension Type 2 diabetes mellitus with hemoglobin A1c goal of less than 7.0% Arthritis of left shoulder DM (diabetes mellitus) type II uncontrolled with eye manifestation Family History Mother Diabetes History of cancer Father Heart attack Social History Housing: House Alcohol intake: current Alcohol intake frequency: holidays/special occasions only Patient Tobacco Use Status: Never used Tobacco service: No Current occupational status: employed Cognitive needs: No Hearing needs: No Vision needs: No Review of Systems Const All systems reviewed & are unremarkable except as noted in HPI and below Physical Exam Vital Signs: Last Vital Signs Temp 98.3 F 03/18/25 12:50 Pulse 111 H 03/18/25 12:50 BP 124/80 03/18/25 12:50 Pulse Ox 98 03/18/25 12:50 Oxygen Delivery Method Room Air 03/18/25 12:50 BMI result Body Mass Index 32.2 Assessment & Plan Assessment & Plan (1) Bee sting reaction: Code(s): T63.441A - Toxic effect of venom of bees, accidental (unintentional), initial encounter Qualifiers: Encounter type: initial encounter Injury intent: accidental or unintentional Qualified Code(s): T63.441A - Toxic effect of venom of bees, accidental (unintentional), initial encounter Plan Most likely bee sting reaction and cellulitis plan - Prescribed prednisone to reduce inflammation and swelling. - Prescribed antibiotics to prevent infection. - Advised to monitor for worsening symptoms such as increased swelling, redness, fever, or shortness of breath. - Instructed to seek immediate medical attention if symptoms progress or if experiencing difficulty breathing. Medications: New prednisone 50 mg PO QAM 5 tabs 0RF cephalexin 500 mg PO Q6H 28 caps 0RF Coding Level of Care Code Est Pt Level 3 (21386) Diagnoses Bee sting reaction, accidental or unintentional, initial encounter T63.441A Encounter type: initial encounter Injury intent: accidental or unintentional
[2025-03-18 12:50] VITALS: BP 124/80; PULSE 111; TEMP 36.8; O2SAT 98; BMI 32.2
== END 2025-03-18 13:25 | disposition home or self-care (01) ==
PROVIDERS: PCP Internal Medicine; Visit Provider Physician Assistant Medical
DX: T63.441A Toxic effect of venom of bees, accidental (unintentional), initial encounter (principal)